=== PATIENT | female | born 1985 | race Caucasian/White ===

== ENCOUNTER 2017-04-11 19:22 | Emergency (ER) | payer SELFPAY ==
[2017-04-11] MEDS ORDERED: KETOROLAC TROMETHAMINE 60 MG/2 ML VIAL ONE (21:26)
== END 2017-04-11 21:42 | disposition home or self-care (01) ==
LOC: EDH 19:22
DX: M70.62 Trochanteric bursitis, left hip (principal); Y93.89 Activity, other specified; Z72.0 Tobacco use; Z98.890 Other specified postprocedural states
CPT/HCPCS: 73502; 81025; 96372; 99285; J1885

== ENCOUNTER 2017-06-24 20:59 | Emergency (ER) | payer SELFPAY ==
[2017-06-24] MEDS ORDERED: TETRACAINE HCL 0.5% 4 ML OPHTH SOLN ONE (21:53)
[2017-06-24] MEDS ORDERED: FLUORESCEIN SODIUM 0.6 MG STRIP ONE (21:53)
== END 2017-06-24 22:29 | disposition home or self-care (01) ==
LOC: EDH 20:59
DX: S05.02XA Injury of conjunctiva and corneal abrasion without foreign body, left eye, initial encounter (principal); H10.89 Other conjunctivitis; Z72.0 Tobacco use; X58.XXXA Exposure to other specified factors, initial encounter; Y93.89 Activity, other specified; Y92.89 Other specified places as the place of occurrence of the external cause; Y99.8 Other external cause status

== ENCOUNTER 2017-09-22 19:01 | Emergency (ER) | payer OTHER ==
[2017-09-22] MEDS ORDERED: LIDOCAINE 5% TOPICAL PATCH TP ONE (20:12)
[2017-09-22] MEDS ORDERED: KETOROLAC TROMETHAMINE 15MG/ML ONE (20:13)
[2017-09-22] MEDS ORDERED: DIAZEPAM 5 MG TABLET ONE (20:13)
== END 2017-09-22 21:48 | disposition home or self-care (01) ==
LOC: EDH 19:01
DX: M54.16 Radiculopathy, lumbar region (principal); Z72.0 Tobacco use
CPT/HCPCS: 96374; 99284; J1885

== ENCOUNTER 2018-01-08 00:19 | Emergency (ER) | payer OTHER ==
[2018-01-08] MEDS ORDERED: IPRATROPIUM/ALBUTEROL SULFATE 3 ML SOLUTION IH ONE (00:53)
== END 2018-01-08 02:16 | disposition home or self-care (01) ==
LOC: EDH 00:19
DX: J20.9 Acute bronchitis, unspecified (principal); R07.89 Other chest pain; Z98.890 Other specified postprocedural states
CPT/HCPCS: 71046; 87804; 94640

== ENCOUNTER 2018-04-29 09:38 | Emergency (ER) | payer OTHER ==
[2018-04-29 10:54] LABS: RAPID GROUP A STREP NEGATIVE (NEGATIVE)
== END 2018-04-29 11:27 | disposition home or self-care (01) ==
LOC: EDH 09:38
DX: J10.1 Influenza due to other identified influenza virus with other respiratory manifestations (principal); R50.81 Fever presenting with conditions classified elsewhere; Z98.51 Tubal ligation status
CPT/HCPCS: 87804; 87880

== ENCOUNTER 2018-11-20 08:20 | Emergency (ER) | payer OTHER | END 2018-11-20 09:09 | disposition home or self-care (01) | LOC: EDH 08:20 | DX: J01.90 Acute sinusitis, unspecified (principal); J02.9 Acute pharyngitis, unspecified; Z98.890 Other specified postprocedural states; Z72.0 Tobacco use | CPT/HCPCS: 81025 ==

== ENCOUNTER 2019-01-08 20:58 | Emergency (ER) | payer OTHER ==
[2019-01-08] MEDS ORDERED: NAPROXEN 500 MG TABLET ONE (22:35)
== END 2019-01-08 23:05 | disposition home or self-care (01) ==
LOC: EDH 20:58
DX: S83.91XA Sprain of unspecified site of right knee, initial encounter (principal); S86.911A Strain of unspecified muscle(s) and tendon(s) at lower leg level, right leg, initial encounter; S80.02XA Contusion of left knee, initial encounter; S80.12XA Contusion of left lower leg, initial encounter; X58.XXXA Exposure to other specified factors, initial encounter; Y93.89 Activity, other specified; Y92.89 Other specified places as the place of occurrence of the external cause; Y99.8 Other external cause status
CPT/HCPCS: 73562

== ENCOUNTER 2019-05-01 16:07 | Emergency (ER) | payer BC ==
[2019-05-01] MEDS ORDERED: KETOROLAC TROMETHAMINE 60 MG/2 ML VIAL ONE (16:32)
[2019-05-01] MEDS ORDERED: DIAZEPAM 5 MG TABLET ONE (16:33)
[2019-05-01] MEDS ORDERED: LIDOCAINE 5% TOPICAL PATCH TP ONE (16:33)
== END 2019-05-01 18:15 | disposition home or self-care (01) ==
LOC: EDH 16:07
DX: S39.012A Strain of muscle, fascia and tendon of lower back, initial encounter (principal); X50.0XXA Overexertion from strenuous movement or load, initial encounter; Y93.89 Activity, other specified; Y92.89 Other specified places as the place of occurrence of the external cause; Y99.8 Other external cause status
CPT/HCPCS: 96372; 99284; J1885

== ENCOUNTER 2020-07-04 09:53 | Emergency (ER) | payer BC, OTHER ==
[2020-07-04 10:13] LABS: BASOPHILS % (AUTO) 0.6 % (0.0-5.0); EOSINOPHILS % (AUTO) 2.7 % (0.0-8.0); HEMATOCRIT 47.2 % (36-48); LYMPHOCYTES % (AUTO) 27.8 % (21.0-51.0); MEAN CORPUSCULAR HEMOGLOBIN 26.7 pg (27.0-33.0); MEAN CORPUSCULAR HGB CONC 32.4 g/dL (32.0-36.0); MEAN CORPUSCULAR VOLUME 82.4 fL (79-99); MONOCYTES % (AUTO) 6.2 % (3.0-13.0); NEUTROPHILS % (AUTO) 62.2 % (40.0-77.0); PLATELET COUNT (AUTO) 324 K/uL (130-400); RED BLOOD CELL COUNT(AUTO) 5.73 MIL/uL (4.00-5.50); RED CELL DISTRIBUTION WIDTH 13.4 % (11.0-15.5); WHITE BLOOD COUNT (AUTO) 9.5 K/uL (4.8-10.8)
[2020-07-04 10:21] LABS: CREATININE 0.8 mg/dL (0.5-1.5); POTASSIUM 4.6 mmol/L (3.5-5.1)
[2020-07-04] MEDS ORDERED: KETOROLAC TROMETHAMINE 15MG/ML ONE (10:21)
[2020-07-04] MEDS ORDERED: LORAZEPAM 2 MG/ML 1 ML VIAL ONE (10:22)
[2020-07-04 10:26] LABS: ALBUMIN 3.3 g/dL (3.5-5.0); BILIRUBIN,TOTAL 0.3 mg/dL (0.2-1.0); TOTAL PROTEIN, SERUM 7.3 g/dL (6.0-8.3)
== END 2020-07-04 12:35 | disposition home or self-care (01) ==
LOC: EDH 09:53
DX: R07.89 Other chest pain (principal); E11.65 Type 2 diabetes mellitus with hyperglycemia; Z20.822 Contact with and (suspected) exposure to COVID-19; Z98.890 Other specified postprocedural states; Z72.0 Tobacco use
CPT/HCPCS: 36415; 71045; 80053; 84484; 85025; 87426; 93005; 96374; 96375; 99285; J1885; J2060; U0003

== ENCOUNTER 2020-07-24 17:33 | Emergency (ER) | payer OTHER, SELFPAY ==
[2020-07-24] MEDS ORDERED: MAG HYDROX/AL HYDROX/SIMETH ES 30 ML SUSP UDCUP ONE (17:57)
[2020-07-24] MEDS ORDERED: LIDOCAINE HCL-MPF 1% 2ML VIAL ONE (17:57)
[2020-07-24] MEDS ORDERED: LIDOCAINE HCL 2% VISCOUS 15 ML UDCUP ONE (17:57)
[2020-07-24] MEDS ORDERED: CEFTRIAXONE SODIUM 1 GM ONE (17:57)
[2020-07-24] MEDS ORDERED: ACETAMINOPHEN EXTRA STRENGTH 500 MG TABLET ONE (17:58)
== END 2020-07-24 18:50 | disposition home or self-care (01) ==
LOC: EDH 17:33
DX: J03.90 Acute tonsillitis, unspecified (principal); Z98.890 Other specified postprocedural states; Z90.710 Acquired absence of both cervix and uterus
CPT/HCPCS: 96372; 99283; J0696; J3490

== ENCOUNTER 2021-01-16 21:49 | Emergency (ER) | payer OTHER ==
[~2021-01-16] VITALS: Ht 172.7 cm; Wt 181.4 kg
[2021-01-16] MEDS ORDERED: KETOROLAC 60 MG VIAL (30MG/ML) IM ONE (22:30)
[2021-01-16] MEDS ORDERED: ACET-2247 PO (22:53)
[2021-01-16 23:00] VITALS: BP 140/76
== END 2021-01-16 23:17 | disposition home or self-care (01) ==
LOC: EDH 21:49
DX: S80.02XA Contusion of left knee, initial encounter (principal); M17.12 Unilateral primary osteoarthritis, left knee; E11.9 Type 2 diabetes mellitus without complications; W18.39XA Other fall on same level, initial encounter; Y93.89 Activity, other specified; Y92.89 Other specified places as the place of occurrence of the external cause; Y99.8 Other external cause status
CPT/HCPCS: 73562; 96372; 99283; J1885

== ENCOUNTER 2021-03-29 23:54 | Emergency (ER) | payer OTHER ==
[~2021-03-29] VITALS: Ht 175.3 cm; Wt 163.3 kg
[~2021-03-29 23:54] MED LIST: ACET-2247 PO
[2021-03-30 03:44] LABS: APPEARANCE,URINE Clear (CLEAR); BILIRUBIN,URINE Negative (NEGATIVE); COLOR,URINE Yellow (YELLOW); GLUCOSE, URINE (UA) >=1000 mg/dL (NEGATIVE); KETONES,URINE Negative (NEGATIVE); LEUKOCYTE ESTERASE ,URINE Negative (NEGATIVE); NITRATE,URINE Negative (NEGATIVE); OCCULT BLOOD,URINE Negative (NEGATIVE); PROTEIN,URINE Negative (NEGATIVE); UROBILINOGEN,URINE 0.2 mg/dL (0.2-1.0)
[2021-03-30 03:47] LABS: HCG,QUAL RESULT NEGATIVE (NEGATIVE)
[2021-03-30] MEDS ORDERED: KETOROLAC 30MG VIAL (30MG/ML) IV ONE (04:00)
[2021-03-30] MEDS ORDERED: MORPHINE 2 MG SYG IVP ONE (04:00)
[2021-03-30] MEDS ORDERED: ONDANSETRON 4MG INJ IVP ONE (04:00)
[2021-03-30 04:06] LABS: BACTERIA,URINE None Seen /HPF (None Seen); RBC,URINE 0-1 /HPF (0-1); SQUAMOUS EPITHELIAL CELL,UR Rare /HPF (0-2); WBC,URINE 0-1 /HPF (0-1)
[2021-03-30 04:08] LABS: BASOPHILS % (AUTO) 0.5 % (0.0-5.0); EOSINOPHILS % (AUTO) 1.8 % (0.0-8.0); HEMATOCRIT 43.8 % (36-48); LYMPHOCYTES % (AUTO) 27.5 % (21.0-51.0); MEAN CORPUSCULAR HEMOGLOBIN 26.9 pg (27.0-33.0); MEAN CORPUSCULAR HGB CONC 32.4 g/dL (32.0-36.0); MEAN CORPUSCULAR VOLUME 83.1 fL (79-99); NEUTROPHILS % (AUTO) 62.7 % (40.0-77.0); PLATELET COUNT (AUTO) 305 K/uL (130-400); RED BLOOD CELL COUNT(AUTO) 5.27 MIL/uL (4.00-5.50); RED CELL DISTRIBUTION WIDTH 13.1 % (11.0-15.5); WHITE BLOOD COUNT (AUTO) 8.2 K/uL (4.8-10.8)
[2021-03-30 04:11] LABS: CREATININE 0.8 mg/dL (0.5-1.5); POTASSIUM 3.9 mmol/L (3.5-5.1)
[2021-03-30 04:23] LABS: ALBUMIN 3.4 g/dL (3.5-5.0); BILIRUBIN,TOTAL 0.2 mg/dL (0.2-1.0); TOTAL PROTEIN, SERUM 7.3 g/dL (6.0-8.3)
[2021-03-30] MEDS ORDERED: 0.9%NACL 1000ML 1,000 ML IV ONE (04:30)
[2021-03-30] MEDS ORDERED: INSULIN HUMULIN R 100 UNIT/ML 3ML IV ONE (04:30)
[2021-03-30] MEDS ORDERED: CYCL-309 PO (06:13)
[2021-03-30] MEDS ORDERED: IBUP-2070 PO (06:13)
[2021-03-30 06:19] VITALS: BP 147/82
== END 2021-03-30 06:30 | disposition home or self-care (01) ==
LOC: EDH 23:54
DX: E11.65 Type 2 diabetes mellitus with hyperglycemia (principal); D35.01 Benign neoplasm of right adrenal gland; M54.50 Low back pain, unspecified; K76.0 Fatty (change of) liver, not elsewhere classified; E66.01 Morbid (severe) obesity due to excess calories; Z68.43 Body mass index [BMI] 50.0-59.9, adult; Z79.1 Long term (current) use of non-steroidal anti-inflammatories (NSAID); Z79.4 Long term (current) use of insulin; Z79.899 Other long term (current) drug therapy
CPT/HCPCS: 36415; 74176; 80053; 81001; 81025; 85025; 96361; 96374; 96375; 99284; J1815; J1885; J2405; J7030

== ENCOUNTER 2022-05-15 15:21 | Emergency (ER) | payer OTHER ==
[~2022-05-15] VITALS: Ht 175.3 cm; Wt 140.6 kg
[~2022-05-15 15:21] MED LIST changes: +CYCL-309 PO; +IBUP-2070 PO
[2022-05-15 16:04] LABS: BASOPHILS % (AUTO) 0.5 % (0.0-5.0); EOSINOPHILS % (AUTO) 2.2 % (0.0-8.0); HEMATOCRIT 45.9 % (36-48); LYMPHOCYTES % (AUTO) 20.6 % (21.0-51.0); MEAN CORPUSCULAR HEMOGLOBIN 27.2 pg (27.0-33.0); MONOCYTES % (AUTO) 6.1 % (3.0-13.0); NEUTROPHILS % (AUTO) 70.2 % (40.0-77.0); PLATELET COUNT (AUTO) 350 K/uL (130-400); RED BLOOD CELL COUNT(AUTO) 5.74 MIL/uL (4.00-5.50); RED CELL DISTRIBUTION WIDTH 12.9 % (11.0-15.5)
[2022-05-15 16:10] LABS: APPEARANCE,URINE CLEAR (CLEAR); BILIRUBIN,URINE NEGATIVE (NEGATIVE); COLOR,URINE LIGHT-YELLOW (YELLOW); GLUCOSE, URINE (UA) >=1000 mg/dL (NEGATIVE); KETONES,URINE 5 mg/dL (NEGATIVE); LEUKOCYTE ESTERASE ,URINE NEGATIVE Leu/uL (NEGATIVE); NITRATE,URINE NEGATIVE (NEGATIVE); OCCULT BLOOD,URINE NEGATIVE (NEGATIVE); PH,URINE 5.5 (5.0-8.0); PROTEIN,URINE NEGATIVE (NEGATIVE); UROBILINOGEN,URINE 0.2 mg/dL (0.2-1.0)
[2022-05-15 16:19] LABS: CREATININE 0.8 mg/dL (0.5-1.5); POTASSIUM 4.2 mmol/L (3.5-5.1)
[2022-05-15 16:20] LABS: BACTERIA,URINE RARE /HPF (None Seen); HCG,QUALITATIVE URINE NEGATIVE (NEGATIVE); SQUAMOUS EPITHELIAL CELL,UR FEW /HPF (0-2); YEAST,URINE BUDDING FEW /HPF (None Seen)
[2022-05-15 16:23] LABS: ALBUMIN 3.2 g/dL (3.5-5.0); TOTAL PROTEIN, SERUM 7.1 g/dL (6.0-8.3)
[2022-05-15] MEDS ORDERED: CEFTRIAXONE 1G VIAL IVP ONE (18:00)
[2022-05-15] MEDS ORDERED: 0.9%NACL 1000ML 2,000 ML IV ONE (18:00)
[2022-05-15] MEDS ORDERED: 0.9%NACL 1000ML 1,000 ML IV ONE (18:30)
[2022-05-15] MEDS ORDERED: CEPH500B PO (21:03)
[2022-05-15 21:10] VITALS: BP 124/62
== END 2022-05-15 21:18 | disposition home or self-care (01) ==
LOC: EDH 15:21
DX: N39.0 Urinary tract infection, site not specified (principal); E11.9 Type 2 diabetes mellitus without complications; Z79.1 Long term (current) use of non-steroidal anti-inflammatories (NSAID); Z79.899 Other long term (current) drug therapy; Z20.822 Contact with and (suspected) exposure to COVID-19
CPT/HCPCS: 99285; 96374; 71045; 96361; 87635; 80053; 85025; 87880; 87804 ×2; 83605 ×2; 81001; 81025; 36415; C9803; J7030; J0696

== ENCOUNTER 2022-12-10 22:28 | Emergency (ER) | payer OTHER ==
[~2022-12-10] VITALS: Ht 175.3 cm; Wt 131.1 kg
[~2022-12-10 22:28] MED LIST changes: +CEPH500B PO
[2022-12-10] MEDS ORDERED: IBUPROFEN 600 MG TABLET ONE (23:18)
[2022-12-10] MEDS ORDERED: IBUPROFEN 600 MG TABLET PO ONE (23:30)
[2022-12-11] MEDS ORDERED: IBUP-1493 PO
[2022-12-11 00:52] VITALS: BP 149/83; PULSE 79; RESP 18; O2SAT 99
== END 2022-12-11 00:55 | disposition home or self-care (01) ==
LOC: EDH 22:28
DX: M25.562 Pain in left knee (principal); E11.9 Type 2 diabetes mellitus without complications; E66.9 Obesity, unspecified; Z79.899 Other long term (current) drug therapy; Z98.890 Other specified postprocedural states
CPT/HCPCS: 73562

== ENCOUNTER 2024-02-06 11:46 | Emergency (ER) | payer BC ==
[~2024-02-06] VITALS: Ht 175.3 cm; Wt 131.1 kg
[~2024-02-06 11:46] MED LIST changes: +IBUP-1493 PO
--- NOTE | 2024-02-06 11:52 | ERN ---
ED Note History of Present Illness Stated Complaint: HEADACHES X3 DAYS Time Seen by MD: 11:46 Dictation: PATIENT IS A 38-YEAR-OLD FEMALE COMING IN WITH A A BILATERAL OCCIPITAL HEADACHE SHE HAS HAD ONSET THREE DAYS PRIOR TO ARRIVAL. SHE STATES IT WAS NOT A THUNDERCLAP OR SUDDEN ONSET OF HEADACHE. NO NAUSEA VOMITING NO FEVER NO CHILLS NO MENINGEAL SIGNS. SHE STATES NO HISTORY OF PRIOR HEAD INJURIES OR SURGERIES. SHE HAS NOT BEEN TO SEE HER PRIMARY CARE DOCTOR BECAUSE STATES SHE COULD NOT GET AN APPOINTMENT. SHE STATES SHE HAS TAKEN EXCEDRIN UTIE-CET-ACXNYWS FOR HEADACHE. NIH IS 0, GAIT IS STEADY TO TRIAGE Allergies: Coded Allergies: No Known Allergies (Unverified Allergy, Unknown, 11/20/18) No Known Drug Allergies (Unverified Allergy, Unknown, 01/08/19) Home Meds Active Scripts Ibuprofen (Motrin/Advil) 800 Mg Tab, 800 MG PO TID, #30 TAB Prov:RADHA PAUL MD 12/11/22 Cephalexin Monohydrate (Keflex) 500 Mg Cap, 1000 MG PO BID for 7 Days, #28 CAP Prov:RUTH RACHEL NP 05/15/22 Ibuprofen (Ibuprofen) 600 Mg Tablet, 600 MG PO Q6H PRN for PAIN, #30 TAB 0 Refills Prov:DEN GOFF MD 03/30/21 Cyclobenzaprine HCl (Cyclobenzaprine HCl) 10 Mg Tablet, 10 MG PO TID PRN for PAIN for 10 Days, #30 TAB 0 Refills Prov:DEN GOFF MD 03/30/21 Acetaminophen (Tylenol) 325 Mg Tablet, 650 MG PO Q4HPRN, #50 TAB Prov:GUERA WONG 01/16/21 Past Medical History Past Medical History: Diabetes-Type II Additional Past Medical Hx: Obesity Surgical History: Surgical History Other: TUBAL LIGATION Family History: Negative Social History: Negative, Lives with family History: Not Applicable RN Note Reviewed/Agreed w/PFSH: Yes Review of System Dictation CONSTITUTIONAL: NEGATIVE EXCEPT FOR HPI HEAD/FACE: NEGATIVE EXCEPT FOR HPI EENT: NEGATIVE EXCEPT FOR HPI RESPIRATORY: NEGATIVE EXCEPT FOR HPI GASTROINTESTINAL/ABDOMINAL: NEGATIVE EXCEPT FOR HPI GENITOURINARY: NEGATIVE EXCEPT FOR HPI MUSCULOSKELETAL: NEGATIVE EXCEPT FOR HPI INTEGUMENTARY: NEGATIVE EXCEPT FOR HPI NEUROLOGICAL/PSYCH: NEGATIVE EXCEPT FOR HPI HEADACHE HEMATOLOGIC/LYMPHATIC: NEGATIVE EXCEPT FOR HPI ALL SYSTEMS NEGATIVE, EXCEPT NOTED ABOVE. 13 POINT REVIEW OF SYSTEMS ASSESSED AND ALL NEGATIVE EXCEPT FOR ABOVE. Initial Vital Sign VS Vital Signs Date Time Temp Pulse Resp B/P (MAP) Pulse Ox O2 Delivery O2 Flow Rate FiO2 02/06/24 11:55 99.1 102 18 198/118 98 Room Air 0 02/06/24 13:08 21 Physical Exam Dictation VITAL SIGNS REVIEWED GENERAL APPEARANCE: ALERT, ORIENTED X 3, MODERATE ACUTE DISTRESS, WELL DEVELOPED, NOURISHED. MORBID OBESITY HEAD AND FACE: NON-TRAUMATIC. EYES: PERRL, PINK CONJUNCTIVAS, EYELID NO TRAUMA, ANTERIOR CHAMBER WITH ARCUS SENILIS. EARS: PINNAS INTACT AND NO SIGNS OF TRAUMA OR ERYTHEMA EAR CANALS CLEAR AND NO DISCHARGE TM NO ERYTHEMA NOSE: NO DISCHARGE, NO BLEEDING. OROPHARYNX: MOUTH NORMAL, TONGUE PINK, PHARYNX CLEAR,NO ERYTHEMA, TONSILS NO EXUDATES, NO ABSCESSES NOTED, MUCOUS MEMBRANE MOIST NECK: SUPPLE, NON-TENDER, NO THYROMEGALY, NO MASSES, NO JVD, NO BRUITS BREAST:DEFERRED CHEST:NO TENDERNESS, NO CREPITUS, NO PARADOXICAL MOVEMENT, NO RETRACTIONS LUNGS:CLEAR, WELL-VENTILATED, SYMMETRIC, NO RALES, NO WHEEZING, NO RHONCHI, NO STRIDOR, GOOD BREATH SOUNDS BILATERALLY HEART: REGULAR RATE, REGULAR RHYTHM, NO MURMUR, NO GALLOPS VASCULAR: NO PERIPHERAL EDEMA, ABDOMEN: SOFT, POSITIVE BOWEL SOUNDS, NONDISTENDED, NO GUARDING, NONTENDER, NO REBOUND, NO MASSES NO HEPATOMEGALY, NO SPLENOMEGALY, NO MYERS'S SIGN, NO HERNIAS. RECTAL: DEFERRED GENITAL: DEFERRED NEUROLOGICAL: NORMAL SPEECH, MOTOR FUNCTION INTACT, SENSORY FUNCTION INTACT MUSCULOSKELETAL: NECK NONTENDER, FULL RANGE OF MOTION, BACK NONTENDER, FULL RANGE OF MOTION, EXTREMITIES: NONTENDER, FULL RANGE OF MOTION SKIN: COLOR PINK, DRY, NO TURGOR, NO RASH, NO LACERATIONS, NO ABRASIONS, NO CONTUSIONS. LYMPHATIC: DEFERRED Results (Laboratory/Radiology) Labs Reviewed?: Yes ED Course ED Course Orders Procedure Category Date Status Time Hydrocodone/Apap PHA 02/06/24 Complete 5/325 ([place] 5/325mg) 12:00 Cyclobenzaprine Hcl PHA 02/06/24 Complete (Cyclobenzaprine Hcl 12:00 Acetaminophen With PHA 02/06/24 Complete Codeine (Tylenol-Code 12:00 Current Medications Medications (Trade) Dose Ordered Sig/Marilu Route PRN Reason Start Time Stop Time Status Last Admin Dose Admin Acetaminophen/ Codeine Phosphate (TYLenol-coDEINE TAB) 2 tab ONCE ONCE PO 02/06/24 12:00 02/06/24 12:01 DC 02/06/24 12:12 Acetaminophen/ Hydrocodone Bitart (NORco 5/325MG) 1 tab ONCE ONCE PO 02/06/24 12:00 02/06/24 12:01 DC 02/06/24 12:12 Cyclobenzaprine HCl (Cyclobenzaprine HCl) 10 mg ONCE ONCE PO 02/06/24 12:00 02/06/24 12:01 DC 02/06/24 12:12 Vital Signs Date Time Temp Pulse Resp B/P (MAP) Pulse Ox O2 Delivery O2 Flow Rate FiO2 02/06/24 13:08 98.8 89 18 150/82 98 Room Air* 0 21 02/06/24 11:55 99.1 102 18 198/118 98 Room Air 0 1255, PATIENT STATES PAIN IS MARKEDLY REDUCED AFTER TREATMENT. DISCHARGED HOME WITH DIAGNOSIS OF BENIGN HYPERTENSION AND TENSION HEADACHE TOLD TO SEE HER DOCTOR ANASTASIYA. REPEAT BLOOD PRESSURE 154/78. HEADACHE HAS RESOLVED Medical Decision Making MDM MEDICAL DISCHARGE MAKING BASED ON TREATMENT FOR TENSION HEADACHE TENSION HEADACHE MARKEDLY RELIEVED PATIENT NOTED TO HAVE HYPERTENSION AND WAS WARNED TO FOLLOW UP WITH HER PRIMARY CARE DOCTOR IN 1-2 DAYS FOR MANAGEMENT. SHE STATES SHE CAUSED AN APPOINTMENT WITH HER DOCTOR ON SATURDAY. DX & DISP Disposition: Discharge Departure Impression: Primary Impression: Benign hypertension Additional Impressions: Tension headache, Obesity Condition: Stable Scripts Butalb/Acetaminophen/Caffeine (Esgic 50-325-40 mg Tablet) 50 Mg-325 Mg-40 Mg Tablet 2 TAB PO Q4H for HEADACHE for 5 Days, #20 TAB 0 Refills TWO TABLETS BY MOUTH EVERY4 HOURS P.R.N. HEADACHE, MAXIMUM SIX TABLETS IN 24 HOURS Prov: GORDY VELEZ NP 02/06/24 Enalapril Maleate (Enalapril Maleate) 10 Mg Tablet 1 TAB PO DAILY for 30 Days, #30 TAB 0 Refills Prov: GORDY VELEZ NP 02/06/24 Additional Instructions: FOLLOW-UP WITH PRIMARY CARE PROVIDER IN 1 TO 2 DAYS. TAKE MEDICATIONS DIRECTED HERE IN THE EMERGENCY ROOM. OKAY TO CONTINUE HOME MEDICATIONS UNLESS OTHERWISE DISCUSSED DURING YOUR VISIT IN THE EMERGENCY ROOM TODAY. RETURN TO YOUR NEAREST EMERGENCY ROOM IF SYMPTOMS WORSEN OR IF THERE IS NO IMPROVEMENT. CALL 911 IF YOU NEED IMMEDIATE ASSISTANCE. TAKE TYLENOL OR MOTRIN [id number] NEEDED AND IF NO CONTRAINDICATIONS ARE PRESENT. INCREASE ORAL HYDRATION. A WOUND CULTURE OR URINE CULTURE WAS ORDERED HERE IN THE EMERGENCY ROOM DEPARTMENT PLEASE FOLLOW-UP WITH PRIMARY CARE PROVIDER AND ADVISE THEM TO GET REPEAT PORTS FROM OUR FACILITY. IF YOU HAD ANY BERNICE WRAP/SPLINTS THAT WERE APPLIED HERE, PLEASE DO NOT REMOVE THEM UNTIL YOU SEE YOUR PRIMARY CARE OR SPECIALTY. TAKE ENALAPRIL DIRECTED DAILY FOR YOUR BLOOD PRESSURE. FOLLOW UP WITH YOUR PRIMARY CARE DOCTOR IN 1-2 DAYS FOR MANAGEMENT. Referrals: SELF,REFERRAL (PCP) Time of Disposition: 13:20 I have reviewed the case, and I agree with, Diagnosis and Plan GORDY VELEZ NP Feb 06, 2024 11:52
[2024-02-06] MEDS: CYCLOBENZAPRINE HCL 10 MG TABLET PO ONE (12:12)
[2024-02-06] MEDS: acetaMINOPHEN WITH coDEINE 1 TAB TAB PO ONE (12:12)
[2024-02-06] MEDS: HYDROcodone/APAP 5/325 1 TAB TABLET PO ONE (12:12)
[2024-02-06 13:08] VITALS: BP 150/82; PULSE 89; RESP 18; TEMP 98.8; O2SAT 98
[2024-02-06] MEDS ORDERED: ENAL-89 PO (13:21)
[2024-02-06] MEDS ORDERED: BUTA-271 PO (13:21)
== END 2024-02-06 13:36 | disposition home or self-care (01) ==
LOC: EDH 11:46
DX: G44.209 Tension-type headache, unspecified, not intractable (principal); I10 Essential (primary) hypertension; E66.9 Obesity, unspecified; E11.9 Type 2 diabetes mellitus without complications; Z79.1 Long term (current) use of non-steroidal anti-inflammatories (NSAID); Z98.51 Tubal ligation status; Z98.890 Other specified postprocedural states
CPT/HCPCS: 99283

== ENCOUNTER 2024-12-24 11:12 | Emergency (ER) | payer BC, MEDICAID ==
[~2024-12-24] VITALS: Ht 175.3 cm; Wt 136.1 kg
[~2024-12-24 11:12] MED LIST changes: +BUTA-271 PO; +ENAL-89 PO; +IBUP-1492 PO; -IBUP-2070 PO
[2024-12-24 11:13] VITALS: BP 145/88; PULSE 88; RESP 12; TEMP 98.6; O2SAT 98
[2024-12-24] MEDS ORDERED: CEPH500B PO (11:21)
--- NOTE | 2024-12-24 11:21 | ERN ---
General Chief Complaint: Toe Pain/Injury Stated Complaint: TOE Time Seen by MD: 11:13 Source: patient History of Present Illness Initial Comments PATIENT IS A 39-YEAR-OLD FEMALE COMING IN TO BE EVALUATED FOR RIGHT FOOT GREAT TOE LESION. PER PATIENT SHE NOTICED IT LAST NIGHT SHE IS A DIABETIC IN HIS NEUROPATHY AND LOWER EXTREMITIES SHE DOES NOT RECALL HITTING IT OR ABRASION CAU SING THE LESION. Allergies: Coded Allergies: No Known Allergies (Unverified Allergy, Unknown, 11/20/18) No Known Drug Allergies (Unverified Allergy, Unknown, 01/08/19) Home Meds Active Scripts Butalb/Acetaminophen/Caffeine (Esgic 50-325-40 mg Tablet) 50 Mg-325 Mg-40 Mg Tablet, 2 TAB PO Q4H for HEADACHE for 5 Days, #20 TAB 0 Refills TWO TABLETS BY MOUTH EVERY4 HOURS P.R.N. HEADACHE, MAXIMUM SIX TABLETS IN 24 HOURS Prov:GORDY VELEZ NP 02/06/24 Enalapril Maleate (Enalapril Maleate) 10 Mg Tablet, 1 TAB PO DAILY for 30 Days, #30 TAB 0 Refills Prov:GORDY VELEZ NP 02/06/24 Ibuprofen (Motrin/Advil) 800 Mg Tab, 800 MG PO TID, #30 TAB Prov:RADHA PAUL MD 12/11/22 Cephalexin Monohydrate (Keflex) 500 Mg Cap, 1000 MG PO BID for 7 Days, #28 CAP Prov:RUTH RACHEL NP 05/15/22 Ibuprofen (Ibuprofen) 600 Mg Tablet, 600 MG PO Q6H PRN for PAIN, #30 TAB 0 Refills Prov:DEN GOFF MD 03/30/21 Cyclobenzaprine HCl (Cyclobenzaprine HCl) 10 Mg Tablet, 10 MG PO TID PRN for PAIN for 10 Days, #30 TAB 0 Refills Prov:DEN GOFF MD 03/30/21 Acetaminophen (Tylenol) 325 Mg Tablet, 650 MG PO Q4HPRN, #50 TAB Prov:GUERA WONG 01/16/21 Past Medical History Past Medical History: Diabetes-Type II Medical History Other: Obesity Past Surgical History: Surgical History Other: TUBAL LIGATION Family History Family History: Negative Social History Social History: Negative, Lives with family Female( History) History: Not Applicable ROS Dictation CONSTITUTIONAL: NO CHILLS, NO FEVER, NO WEAKNESS, NO DIAPHORESIS, NO MALAISE. HEAD/FACE: NO SIGNS OF TRAUMA. EENT: NO EYE PAIN, NO BLURRED VISION, NO TEARING, NO DOUBLE VISION, NO EAR PAIN, NO EAR DISCHARGE, NO NOSE PAIN, NO NASAL CONGESTION, NO THROAT PAIN, NO THROAT SWELLING, NO MOUTH PAIN. RESPIRATORY: NO COUGH, NO ORTHOPNEA, NO SOB, NO STRIDOR, NO WHEEZING. CARDIOVASCULAR: NO CHEST PAIN, NO EDEMA, NO PALPITATIONS, NO SYNCOPE. GASTROINTESTINAL/ABDOMINAL: NO ABDOMINAL PAIN, NO CONSTIPATION, NO DIARRHEA, NO NAUSEA, NO VOMITING. GENITOURINARY: NO ABNORMAL DISCHARGE, NO DYSURIA, NO FREQUENT URINATION, NO HEMATURIA. NO COMPLAINTS OF PAIN IN THE GENITALS. MUSCULOSKELETAL: NO BACK PAIN, NO GOUT, NO JOINT PAIN, NO JOINT SWELLING, NO MUSCLE PAIN, NO MUSCLE STIFFNESS, NO NECK PAIN. INTEGUMENTARY: NO CHANGE IN COLOR, NO CHANGE IN HAIR/NAILS, NO DRYNESS, LESION, NO LUMPS, NO RASH. NEUROLOGICAL/PSYCH: NO ANXIETY, NOT DEPRESSED, NO EMOTIONAL PROBLEM, NO HEADACHE, NO NUMBNESS, NO PRE-EXISTING DEFICIT, NO HISTORY OF SEIZURES, NO TREMORS, NO WEAKNESS. HEMATOLOGIC/LYMPHATIC: NOT ANEMIC, NO HISTORY OF BLOOD CLOTS, NO APPARENT BLEEDING, NO BRUISING, GLANDS NOT SWOLLEN. ALL SYSTEMS NEGATIVE, EXCEPT NOTED. Physical Exam Physical Exam Dictation VITAL SIGNS: REVIEWED. GENERAL APPEARANCE: ALERT, ORIENTED X3, NO ACUTE DISTRESS, OBESE. HEAD AND FACE: NON-TRAUMATIC. EYES: PERRL, PINK CONJUNCTIVAS, EYELID NO TRAUMA, ANTERIOR CHAMBER CLEAR. EARS: PINNAS INTACT AND NO SIGNS OF TRAUMA OR ERYTHEMA. EAR CANALS CLEAR AND NO DISCHARGE. TMS NO ERYTHEMA. NOSE: NO DISCHARGE, NO BLEEDING. OROPHARYNX: MOUTH NORMAL, TEETH NO CARIES, TONGUE PINK. PHARYNX CLEAR, NO ERYTHEMA. TONSILS NO EXUDATES, NO ABSCESSES NOTED. MUCOUS MEMBRANE MOIST. NECK: SUPPLE, NON-TENDER, NO THYROMEGALY, NO MASSES, NO JVD, NO BRUITS. BREAST: DEFERRED. CHEST: NO TENDERNESS, NO CREPITUS, NO PARADOXICAL MOVEMENT, NO RETRACTIONS. LUNGS: CLEAR, WELL-VENTILATED, SYMMETRIC, NO RALES, NO WHEEZING, NO RHONCHI, NO STRIDOR, GOOD BREATH SOUNDS BILATERALLY. HEART: REGULAR RATE, REGULAR RHYTHM, NO MURMUR, NO GALLOPS. VASCULAR: NO PERIPHERAL EDEMA. ABDOMEN: SOFT, POSITIVE BOWEL SOUNDS, NONDISTENDED, NO GUARDING, NONTENDER, NO REBOUND, NO MASSES NO HEPATOMEGALY, NO SPLENOMEGALY, NO MYERS'S SIGN, NO HERNIAS. RECTAL: DEFERRED. GENITAL: DEFERRED. NEUROLOGICAL: NORMAL SPEECH, GROSS MOTOR FUNCTION INTACT, GROSS SENSORY FUNCTION INTACT. MUSCULOSKELETAL: NECK NONTENDER, FULL RANGE OF MOTION, BACK NONTENDER, FULL RANGE OF MOTION. EXTREMITIES: NONTENDER, FULL RANGE OF MOTION. SKIN: COLOR PINK, DRY, NO TURGOR, NO RASH, NO LACERATIONS, RIGHT FOOT GREAT TOE BULLOUS LYMPHATICS: DEFERRED. Results Laboratory and Microbiology Labs Reviewed?: Yes MDM MDM: DIFFERENTIAL DIAGNOSIS: RIGHT FOOT GREAT TOE LESION, RIGHT FOOT GREAT TOE, FRICTION IN HIS STAY, PRESSURE BEES RATIONALE: TESTS CONSIDERED AND ORDERED SECONDARY TO SHARED DECISION MAKING INCLUDE: PREVIOUS OUTSIDE RECORDS REVIEWED: OLD ER VISITS. RISK OF COMPLICATION AND/OR MORBIDITY OR MORTALITY OF PATIENT MANAGEMENT: NONE MEDICATIONS-PER MEDICATION RECONCILIATION NEED FOR HOSPITALIZATION: PATIENT DOES NOT MEET CRITERIA FOR HOSPITALIZATION. NEED FOR EMERGENCY MAJOR/MINOR SURGERY: NO PATIENT IS A 39-YEAR-OLD FEMALE COMING IN COMPLAINING OF RIGHT FOOT GREAT TOE BLISTER. ON PHYSICAL EXAM THERE IS A VESICULAR LESION ON THE TIP OF THE RIGHT GREAT TOE SHE DOES NOT RECALL TRAUMA TO THE AREA. SHE DOES STATE HOWEVER THAT SHE IS A DIABETIC IN HIS NEUROPATHY. VITAL SIGNS WITHIN NORMAL LIMITS. PATIENT HAS BEEN DISCHARGED IN STABLE CONDITION WITH A DIAGNOSIS OF PRESSURE BLISTER I DID ADVISED HER APPROPRIATE FOLLOW UP WITH PCP ANTIBIOTICS WILL BE PROVIDED FOR PROTECTION OF IN HIS INFECTIOUS PROCESS. DX & DISP Disposition: Discharge Departure Impression: Primary Impression: Friction blister without infection Condition: Stable Scripts Cephalexin Monohydrate (Keflex) 500 Mg Cap 1 CAP PO BID for 10 Days, #20 CAP 0 Refills Prov: BRITT RICO MD 12/24/24 Referrals: SELF,REFERRAL (PCP) MIKHAIL MCINTOSH MD Time of Disposition: 11:20 BRITT RICO MD Dec 24, 2024 11:21
== END 2024-12-24 11:54 | disposition home or self-care (01) ==
LOC: EDH 11:12
DX: S90.821A Blister (nonthermal), right foot, initial encounter (principal); E11.40 Type 2 diabetes mellitus with diabetic neuropathy, unspecified; E66.9 Obesity, unspecified; Z79.1 Long term (current) use of non-steroidal anti-inflammatories (NSAID); Z79.899 Other long term (current) drug therapy; Z98.51 Tubal ligation status; X58.XXXA Exposure to other specified factors, initial encounter; Y93.89 Activity, other specified; Y92.89 Other specified places as the place of occurrence of the external cause; Y99.8 Other external cause status
CPT/HCPCS: 99283

== ENCOUNTER 2025-03-02 16:10 | Emergency (ER) | payer MEDICAID ==
[~2025-03-02] VITALS: Ht 175.3 cm; Wt 135.2 kg
--- NOTE | 2025-03-02 16:21 | ERN ---
ED Note History of Present Illness Stated Complaint: KNEE PAIN Chief Complaint: Knee Injury/Swelling Time Seen by MD: 16:17 Dictation: PATIENT IS A 39-YEAR-OLD FEMALE HERE WITH ECCHYMOSIS AND PAIN TENDERNESS TO THE RIGHT LATERAL KNEE STATUS POST SAME LEVEL TRIP FALL LAST NIGHT. SHE STATES SHE WAS AT A LOCAL [employer] AREA WHEN SHE STEPPED INTO A HOLE AND FELL ON HER KNEES. SHE SAID SHE WAS UNABLE TO AMBULATE AFTER THE FALL, HAD A CALL HER WHO HELPED HER TO THE CAR AND TOOK HER HOME. THEY DID NOT GO TO THE HOSPITAL OR DOCTOR TODAY. SHE TOOK IBUPROFEN 30 MINUTES PRIOR TO ARRIVAL HOWEVER STATES IT IS NOT HELPING. DISTAL NEUROVASCULAR CMS INTACT, SKIN IS INTACT. Allergies: Coded Allergies: No Known Allergies (Unverified Allergy, Unknown, 11/20/18) No Known Drug Allergies (Unverified Allergy, Unknown, 01/08/19) Home Meds Active Scripts Cephalexin Monohydrate (Keflex) 500 Mg Cap, 1 CAP PO BID for 10 Days, #20 CAP 0 Refills Prov:BRITT RICO MD 12/24/24 Butalb/Acetaminophen/Caffeine (Esgic 50-325-40 mg Tablet) 50 Mg-325 Mg-40 Mg Tablet, 2 TAB PO Q4H for HEADACHE for 5 Days, #20 TAB 0 Refills TWO TABLETS BY MOUTH EVERY4 HOURS P.R.N. HEADACHE, MAXIMUM SIX TABLETS IN 24 HOURS Prov:GORDY VELEZP 02/06/24 Enalapril Maleate (Enalapril Maleate) 10 Mg Tablet, 1 TAB PO DAILY for 30 Days, #30 TAB 0 Refills Prov:GORDY VELEZP 02/06/24 Ibuprofen (Motrin/Advil) 800 Mg Tab, 800 MG PO TID, #30 TAB Prov:RADHA PAUL MD 12/11/22 Cephalexin Monohydrate (Keflex) 500 Mg Cap, 1000 MG PO BID for 7 Days, #28 CAP Prov:RUTH RACHEL NP 05/15/22 Ibuprofen (Ibuprofen) 600 Mg Tablet, 600 MG PO Q6H PRN for PAIN, #30 TAB 0 Refills Prov:DEN GOFF MD 03/30/21 Cyclobenzaprine HCl (Cyclobenzaprine HCl) 10 Mg Tablet, 10 MG PO TID PRN for PAIN for 10 Days, #30 TAB 0 Refills Prov:DEN GOFF MD 03/30/21 Acetaminophen (Tylenol) 325 Mg Tablet, 650 MG PO Q4HPRN, #50 TAB Prov:GUERA WONG 01/16/21 Past Medical History Past Medical History: Diabetes-Type II, Other Additional Past Medical Hx: Obesity Surgical History: Other, Surgical History Other: D&C Family History: Negative Social History: Negative, Lives with family History: Not Applicable RN Note Reviewed/Agreed w/PFSH: Yes Review of System Dictation CONSTITUTIONAL: NEGATIVE EXCEPT FOR HPI HEAD/FACE: NEGATIVE EXCEPT FOR HPI EENT: NEGATIVE EXCEPT FOR HPI RESPIRATORY: NEGATIVE EXCEPT FOR HPI GASTROINTESTINAL/ABDOMINAL: NEGATIVE EXCEPT FOR HPI GENITOURINARY: NEGATIVE EXCEPT FOR HPI MUSCULOSKELETAL: NEGATIVE EXCEPT FOR HPI RIGHT KNEE PAIN INTEGUMENTARY: NEGATIVE EXCEPT FOR HPI NEUROLOGICAL/PSYCH: NEGATIVE EXCEPT FOR HPI HEMATOLOGIC/LYMPHATIC: NEGATIVE EXCEPT FOR HPI ALL SYSTEMS NEGATIVE, EXCEPT NOTED ABOVE. 13 POINT REVIEW OF SYSTEMS ASSESSED AND ALL NEGATIVE EXCEPT FOR ABOVE. Initial Vital Sign VS Vital Signs Date Time Temp Pulse Resp B/P (MAP) Pulse Ox O2 Delivery O2 Flow Rate FiO2 03/02/25 16:13 98.2 86 18 172/99 98 Physical Exam Dictation VITAL SIGNS REVIEWED GENERAL APPEARANCE: ALERT, ORIENTED X 3, MODERATE ACUTE DISTRESS, WELL DEVELOPED, NOURISHED. MORBID OBESITY HEAD AND FACE: NON-TRAUMATIC. EYES: PERRL, PINK CONJUNCTIVAS, EYELID NO TRAUMA, ANTERIOR CHAMBER WITH ARCUS SENILIS. EARS: PINNAS INTACT AND NO SIGNS OF TRAUMA OR ERYTHEMA EAR CANALS CLEAR AND NO DISCHARGE TM NO ERYTHEMA NOSE: NO DISCHARGE, NO BLEEDING. OROPHARYNX: MOUTH NORMAL, TONGUE PINK, PHARYNX CLEAR,NO ERYTHEMA, TONSILS NO EXUDATES, NO ABSCESSES NOTED, MUCOUS MEMBRANE MOIST NECK: SUPPLE, NON-TENDER, NO THYROMEGALY, NO MASSES, NO JVD, NO BRUITS BREAST:DEFERRED CHEST:NO TENDERNESS, NO CREPITUS, NO PARADOXICAL MOVEMENT, NO RETRACTIONS LUNGS:CLEAR, WELL-VENTILATED, SYMMETRIC, NO RALES, NO WHEEZING, NO RHONCHI, NO STRIDOR, GOOD BREATH SOUNDS BILATERALLY HEART: REGULAR RATE, REGULAR RHYTHM, NO MURMUR, NO GALLOPS VASCULAR: NO PERIPHERAL EDEMA, ABDOMEN: SOFT, POSITIVE BOWEL SOUNDS, NONDISTENDED, NO GUARDING, NONTENDER, NO REBOUND, NO MASSES NO HEPATOMEGALY, NO SPLENOMEGALY, NO MYERS'S SIGN, NO HERNIAS. RECTAL: DEFERRED GENITAL: DEFERRED NEUROLOGICAL: NORMAL SPEECH, MOTOR FUNCTION INTACT, SENSORY FUNCTION INTACT MUSCULOSKELETAL: NECK NONTENDER, FULL RANGE OF MOTION, BACK NONTENDER, FULL RANGE OF MOTION, EXTREMITIES: ECCHYMOSIS TO BOTH KNEES HOWEVER LEFT KNEE HAS FULL RANGE OF MOTION AND PATIENT DOES NOT WANT FILMS DONE. KNEE WAS ECCHYMOSIS AND TENDERNESS TO LATERAL ASPECT OF KNEE. NO HIP PAIN NO PELVIC PAIN. SKIN: COLOR PINK, DRY, NO TURGOR, NO RASH, NO LACERATIONS, NO ABRASIONS, NO CONTUSIONS. LYMPHATIC: DEFERRED Results (Laboratory/Radiology) Laboratory/Radiology REASON: RIGHT LATERAL KNEE PAIN STATUS POST FALL SAME LEVEL LAST NIGHT. ORDERING PHYSICIAN: GORDY VELEZ GRAIN SHOVELER PROCEDURE: KNEE 3V RT - KNEE 3VWS RT EXAM: CR right Knee, 3 View. CLINICAL HISTORY: RIGHT LATERAL KNEE PAIN STATUS POST FALL SAME LEVEL LAST NIGHT. COMPARISON: None provided. FINDINGS: BONES: No acute fracture or aggressive appearing osseous lesion. JOINTS: No dislocation in the right knee. Mild tricompartmental degenerative change. SOFT TISSUES: The soft tissues are unremarkable. IMPRESSION: 1. No fracture or dislocation in the right knee. 2. Mild tricompartmental degenerative change. /[place] Labs Reviewed?: Yes ED Course ED Course Orders Procedure Category Date Status Time Acetaminophen With PHA 03/02/25 Complete Codeine (Tylenol-Code 16:30 Knee 3vws Rt RAD 03/02/25 Resulted 16:18 Current Medications Medications (Trade) Dose Ordered Sig/Marilu Route PRN Reason Start Time Stop Time Status Last Admin Dose Admin Acetaminophen/ Codeine Phosphate (TYLenol-coDEINE TAB) 2 tab ONCE ONCE PO 03/02/25 16:30 03/02/25 16:31 DC Vital Signs Date Time Temp Pulse Resp B/P (MAP) Pulse Ox O2 Delivery O2 Flow Rate FiO2 03/02/25 16:13 98.2 86 18 172/99 98 1700/RIGHT KNEE X-RAY NEGATIVE PATIENT WILL BE DISCHARGED HOME WITH KNEE CONTUSION AND BENIGN HYPERTENSION PAIN WAS TREATED TOLD TO SEE YOUR PRIMARY CARE DOCTOR Medical Decision Making MDM MEDICAL DECISION-MAKING BASED ON EMPIRIC TREATMENT FOR KNEE PAIN AND X-RAY OF RIGHT KNEE. X-RAY DEMONSTRATES DEGENERATIVE CHANGES ONLY, NO FRACTURE PATIENT DISCHARGED HOME WITH IBUPROFEN RICE INSTRUCTIONS SEE YOUR PRIMARY CARE DOCTOR IN 1-2 DAYS DX & DISP Disposition: Discharge Departure Impression: Primary Impression: Contusion of right knee, initial encounter Additional Impression: Fall Condition: Stable Scripts Ibuprofen (Ibuprofen 800 mg Tab) 800 Mg Tab 800 MG PO Q8H PRN for fever or pain, #30 TAB 0 Refills Prov: GORDY VELEZ 03/02/25 Additional Instructions: FOLLOW-UP WITH PRIMARY CARE PROVIDER IN 1 TO 2 DAYS. TAKE MEDICATIONS DIRECTED HERE IN THE EMERGENCY ROOM. OKAY TO CONTINUE HOME MEDICATIONS UNLESS OTHERWISE DISCUSSED DURING YOUR VISIT IN THE EMERGENCY ROOM TODAY. RETURN TO YOUR NEAREST EMERGENCY ROOM IF SYMPTOMS WORSEN OR IF THERE IS NO IMPROVEMENT. CALL 911 IF YOU NEED IMMEDIATE ASSISTANCE. TAKE TYLENOL OR MOTRIN OVER-THE- COUNTER NEEDED AND IF NO CONTRAINDICATIONS ARE PRESENT. INCREASE ORAL HYDRATION. A WOUND CULTURE OR URINE CULTURE WAS ORDERED HERE IN THE EMERGENCY ROOM DEPARTMENT PLEASE FOLLOW-UP WITH PRIMARY CARE PROVIDER AND ADVISE THEM TO GET REPEAT PORTS FROM OUR FACILITY. IF YOU HAD ANY BERNICE WRAP/SPLINTS THAT WERE APPLIED HERE, PLEASE DO NOT REMOVE THEM UNTIL YOU SEE YOUR PRIMARY CARE OR SPECIALTY. COOL COMPRESSES TO KNEES THREE TO 4 TIMES A DAY. TAKE IBUPROFEN EVERY 6-8 HOURS NEEDED FOR PAIN WITH FOOD. ACTIVITY TOLERATED AND SEE YOUR PRIMARY CARE DOCTOR FOR FOLLOW UP. Referrals: SELF,REFERRAL (PCP) Time of Disposition: 17:02 I have reviewed the case, and I agree with, Diagnosis and Plan GORDY VELEZ Mar 02, 2025 16:21
[2025-03-02 16:45] VITALS: BP 169/91; PULSE 81; RESP 20; TEMP 98.2; O2SAT 99
--- NOTE | 2025-03-02 16:51 | HMCIMG ---
EXAM: CR right Knee, 3 View. CLINICAL HISTORY: RIGHT LATERAL KNEE PAIN STATUS POST FALL SAME LEVEL LAST NIGHT. COMPARISON: None provided. FINDINGS: BONES: No acute fracture or aggressive appearing osseous lesion. JOINTS: No dislocation in the right knee. Mild tricompartmental degenerative change. SOFT TISSUES: The soft tissues are unremarkable. IMPRESSION: 1. No fracture or dislocation in the right knee. 2. Mild tricompartmental degenerative change. /[place]
== END 2025-03-02 17:20 | disposition home or self-care (01) ==
LOC: EDH 16:10
DX: S80.01XA Contusion of right knee, initial encounter (principal); S80.02XA Contusion of left knee, initial encounter; E11.9 Type 2 diabetes mellitus without complications; E66.9 Obesity, unspecified; Z79.1 Long term (current) use of non-steroidal anti-inflammatories (NSAID); Z79.899 Other long term (current) drug therapy; W01.0XXA Fall on same level from slipping, tripping and stumbling without subsequent striking against object, initial encounter; Y93.89 Activity, other specified; Y92.89 Other specified places as the place of occurrence of the external cause; Y99.8 Other external cause status
CPT/HCPCS: 73562; 99283